=== PATIENT | male | born 1970 | race African-American/Black ===

== ENCOUNTER 2025-07-17 16:28 | Emergency (ER) | payer OTHER ==
[~2025-07-17] VITALS: Ht 182.9 cm; Wt 77.0 kg
[2025-07-17 16:35] VITALS: BP 135/84; PULSE 85; RESP 18; TEMP 97.5; O2SAT 98
[2025-07-17] MEDS: IBUPROFEN 600 MG TABLET PO ONE (17:23)
[2025-07-17] MEDS: LIDOCAINE 1% 10 ML VIAL ID ONE (17:24)
[2025-07-17] MEDS: BACITRACIN 0.9 GM PACKET OINTMENT TP ONE (17:24)
[2025-07-17] MEDS ORDERED: IBUP-1492 PO (18:56)
[2025-07-17] MEDS ORDERED: CEPH-558 PO (18:56)
[2025-07-17] MEDS: PERTUSS(ACELL),DIPH,TET/PF 0.5 ML SYRINGE [ADULT] IM. ONE (19:07)
== END 2025-07-17 19:16 | disposition home or self-care (01) ==
LOC: EMS 16:28
DX: S01.111A Laceration without foreign body of right eyelid and periocular area, initial encounter (principal); F17.210 Nicotine dependence, cigarettes, uncomplicated; V00.131A Fall from skateboard, initial encounter; Y93.51 Activity, roller skating (inline) and skateboarding; Y92.89 Other specified places as the place of occurrence of the external cause; Y99.8 Other external cause status
CPT/HCPCS: 99283; 90715; 90471; 12011; J3490